=== PATIENT | male | born 1975 | race Caucasian/White ===

== ENCOUNTER 2016-06-15 16:39 | Emergency (ER) | payer OTHER ==
[~2016-06-15] VITALS: Ht 175.3 cm; Wt 75.0 kg
[2016-06-15] MEDS ORDERED: QUET25TA PO (16:47)
[2016-06-15] MEDS ORDERED: QUETIAPINE FUMARATE 100MG TABLET PO ONE (19:30)
[2016-06-15 19:46] LABS: EOSINOPHILS % 1.8 % (0.0-5.0); HEMATOCRIT. 39.8 % (42.0-52.0); HEMOGLOBIN. 13.5 g/dL (14.0-18.0); LYMPHOCYTES % 31.3 % (20.0-50.0); MEAN CORPUSCULAR HEMOGLOBIN 29.9 pg (28.0-32.0); MEAN CORPUSCULAR HGB CONC 33.9 g/dL (31.0-37.0); MEAN CORPUSCULAR VOLUME 88.4 fL (80.0-94.0); MEAN PLATELET VOLUME 7.9 fl (7.4-10.4); NEUTROPHILS % 54.9 % (40.0-76.0); PLATELET 285 x1000/uL (130-400); RED CELL DISTRIBUTION WIDTH 14.4 % (11.6-14.6); WHITE BLOOD COUNT 5.6 x1000/uL (4.5-11.0)
[2016-06-15 19:57] LABS: ACETAMINOPHEN < 2 ug/mL (10-30); ALANINE AMINOTRANSFERASE 35 IU/L (13-61); ALBUMIN 3.5 g/dL (3.4-5.0); ANION GAP 10; CALCIUM 8.2 mg/dL (8.5-10.1); CARBON DIOXIDE 31 mEq/L (21-32); CHLORIDE 104 mEq/L (98-107); ETHANOL BLOOD < 10 mg/dL; INDEX HEMOLYSI 1 (1-3); INDEX ICTERIC 1 (1-4); INDEX LIPEMIC 1 (1-3); UREA NITROGEN BLOOD 14 mg/dL (7-21); eGFR > 60 mL/min (>60)
[2016-06-16 07:58] LABS: GLUCOSE URINE NEGATIVE (NEGATIVE); KETONES URINE NEGATIVE (NEGATIVE); LEUKOCYTE ESTERASE URINE NEGATIVE (NEGATIVE); NITRITE URINE NEGATIVE (NEGATIVE); OCCULT BLOOD URINE TRACE (NEGATIVE); PH URINE 5.5 (4.5-8.0); PROTEIN URINE NEGATIVE (NEGATIVE); SPECIFIC GRAVITY URINE 1.019 (1.005-1.030); UROBILINOGEN URINE 0.2 E.U./dL (0.2-1.0)
[2016-06-16 08:04] LABS: CLARITY URINE CLEAR (CLEAR); COLOR URINE YELLOW (YELLOW)
[2016-06-16 08:11] LABS: *AMPHETAMINES SCREEN URINE NEGATIVE (NEGATIVE); *BARBITURATES SCREEN URINE NEGATIVE (NEGATIVE); *BENZODIAZEPINES SCREEN URINE NEGATIVE (NEGATIVE); *COCAINE SCREEN URINE NEGATIVE (NEGATIVE); CANNABINOID URINE SCREEN NEGATIVE (NEGATIVE); ECSTASY MDMA SCREEN URINE NEGATIVE (NEGATIVE); METHADONE URINE SCREEN NEGATIVE (NEGATIVE); OPIATES URINE SCREEN NEGATIVE (NEGATIVE); PHENCYCLIDINE URINE SCREEN NEGATIVE (NEGATIVE)
[2016-06-16 08:18] LABS: MUCUS URINE 2+ /lpf (NONE/TRACE)
[2016-06-16 08:19] LABS: BACTERIA URINE TRACE; RBC URINE 0-2 /hpf (0-2); SQUAMOUS EPITHELIAL CELL URINE NONE SEEN /lpf (RARE/1+); WBC URINE 0-2 /hpf (0-2)
[2016-06-16] MEDS ORDERED: HALOPERIDOL LACTATE 5MG/ML VIAL IM ONE (16:15)
[2016-06-16] MEDS ORDERED: DIPHENHYDRAMINE 50MG/ML VIAL IM ONE (16:15)
[2016-06-16] MEDS ORDERED: LORAZEPAM 2MG/ML CPJ IM ONE (16:15)
[2016-06-17] MEDS ORDERED: QUETIAPINE FUMARATE 100MG TABLET PO STA (07:54)
[2016-06-17] MEDS ORDERED: LORAZEPAM 1MG TABLET PO ONE (08:00)
[2016-06-17 14:42] VITALS: BP 121/74
== END 2016-06-17 16:57 ==
LOC: ER 16:39
DX: R45.851 Suicidal ideations (principal); R44.0 Auditory hallucinations; Z79.899 Other long term (current) drug therapy
CPT/HCPCS: 36415; 80053; 80305; 80329; 81001; 85025; 99284; G0482; J1200; J1630; J2060; 80307